=== PATIENT | female | born 1970 | race Caucasian/White ===

== ENCOUNTER 2016-12-28 11:47 | Emergency (ER) | payer SELFPAY ==
[2016-12-28 12:15] LABS: #Basophils 0.2 thou/uL (0.0-0.2); #Eosinphils 0.2 thou/uL (0.0-0.7); #Monocytes 0.9 thou/uL (0.11-0.59); #Neutrophils 8.1 thou/uL (1.40-6.50); %Basophils 1.6 % (0.0-1.0); %Eosinophils 1.6 % (0.0-10.0); %Monocytes 7.5 % (0.0-10.0); Hematocrit 47.3 % (36.0-47.0); Mean Platelet Volume 6.9 fL (7.4-10.4); Red Blood Cell (RBC) Count 5.11 mill/uL (4.20-5.40); White Blood Cell (WBC) Count 12.3 thou/uL (4.8-10.8)
[2016-12-28 12:32] LABS: ALT (SGPT) 24 U/L (0-55); AST (SGOT) 28 U/L (5-34); Alkaline Phosphatase 95 U/L (40-150); Anion Gap 16 mmol/L (10-20); BUN (Urea Nitrogen) 15 mg/dL (7.0-18.7); Bilirubin, Total 0.3 mg/dL (0.2-1.2); Calc. Creatinine Clearance 0 mL/min (70-130); Calcium 9.7 mg/dL (7.8-10.44); Carbon Dioxide 23 mmol/L (22-29); Chloride 106 mmol/L (98-107); Estimated GFR-MDRD 73; Globulin 3.2 g/dL (2.4-3.5); Lipase 25 U/L (8-78); Protein, Total 7.5 g/dL (6.0-8.3)
--- NOTE | 2016-12-28 12:52 | ERRECORD ---
[facility] EMERGENCY RECORD HPI ABDOMINAL PAIN (12:21 [facility]) CHIEF COMPLAINTS: Patient presents for evaluation of abdominal pain. HISTORIAN: History provided by patient, 46F presents with sudden onset epigastric pain that she describes as sharp and stabbing. Denies eating anything this morning prior to onset. Had similar symptoms recently and was found to have gallstones but no inflammation. has had intermittent symptoms recently that resolve spontaneously. LOCATION FEMALE: Symptoms are localized, most severe in the epigastrium. QUALITY: Pain is sharp in nature, described as stabbing. TIME COURSE: Sudden onset of symptoms, Symptoms have resolved. ASSOCIATED WITH FEMALE: No associated symptoms. RELIEVED BY: Patient's condition relieved by time. ROS (12:23 [facility]) CONSTITUTIONAL: Negative constitutional review of systems, Historian denies chills, denies fever. EYES: Negative eye review of systems, Historian denies eye pain, denies vision changes. ENT: Negative ears, nose, throat review of systems, Historian denies rhinorrhea, denies sore throat, denies voice changes. CARDIOVASCULAR: Negative cardiovascular review of systems, Historian denies chest pain, denies palpitations. RESPIRATORY: Negative respiratory review of systems, Historian denies cough, denies shortness of breath. GI: Historian reports abdominal pain. GENITOURINARY FEMALE: Negative genitourinary review of systems, Historian denies dysuria, denies frequency. MUSCULOSKELETAL: Negative musculoskeletal review of systems, Historian denies back pain, denies fall, denies injury. SKIN: Negative skin review of systems, Historian denies rash, denies skin changes. NEUROLOGIC: Negative neurologic review of systems, Historian denies headache, denies mental status changes, denies paralysis, denies paresthesias, denies sensory changes. HEMO/LYMPHATIC: Normal hematologic/lymphatic system review, Historian denies abnormal blood clotting. ALLERGIC/IMMUNOLOGIC: Normal allergy/immunologic system review, Historian denies frequent infections. PAST MEDICAL HISTORY (11:53 [facility]) MEDICAL HISTORY: No past medical history, Flu vaccine not up to date, Tetanus immunization up to date, Pneumococcal vaccine not up to date. FEMALE SURGICAL HISTORY: tubal,. PSYCHIATRIC HISTORY: No previous psychiatric history. SOCIAL HISTORY: Patient drinks socially, every week, Patient denies drug use, Patient currently uses tobacco, smokes cigarettes, daily, Patient smokes 1 pack per day. &a-1R&a+25V*p+0X*z2035T*c202B*c15G*c2P*p-0X&a-25V&a+1R Name: Brisa Zhang : 1970 F46 MedRec: [id number] AcctNum: [id number] Prepared: Tory Dec 28, 2016 12:50 by Interface Page 1 of 4 pMD [facility] EMERGENCY RECORD KNOWN ALLERGIES No Known Drug Allergies CURRENT MEDICATIONS (11:52 [facility]) None VITAL SIGNS VITAL SIGNS: BP: 133/79, Pulse: 87, Resp: 22, Temp: 97.8 (Oral), Pain: 9, O2 sat: 99 on Room Air, Time: 12/28/2016 11:52. (11:52 [facility]) BP: 125/72, Pulse: 82, Resp: 18, Pain: 1, O2 sat: 95 on Room Air, Time: 12/28/2016 12:15. (12:15 [facility]) BP: 121/85, Pulse: 79, Resp: 18, Temp: 97.8 (Oral), Pain: 1, O2 sat: 97 on Room Air, Time: 12/28/2016 12:43. (12:43 [facility]) PHYSICAL EXAM (12:23 [facility]) CONSTITUTIONAL: Vital signs reviewed, Patient afebrile, Pulse normal, Blood pressure normal, Respiratory rate normal, Patient appears non toxic, Patient appears pain free, Patient alert and oriented to person, place and time. HEAD: Head exam normal, Head exam included findings of head atraumatic, normocephalic. EYES: Eye exam normal, Eye exam included findings of eyelids normal to inspection, Pupils equally round and reactive to light, Extraocular muscles intact, no nystagmus. ENT: ENT exam normal, Ear exam normal, external ear normal, tympanic membranes normal, no bleeding, Pharynx exam normal, Uvula exam normal, Tonsil exam normal, Mouth exam normal, mucous membranes moist, teeth normal. NECK: Neck exam normal, Neck exam included findings of normal range of motion, Trachea midline, no meningeal signs, no cervical adenopathy, no tenderness. RESPIRATORY CHEST: Respiratory and chest exam normal, Respiratory exam included findings of no respiratory distress, Breath sounds clear. CARDIOVASCULAR: Cardiovascular assessment normal, Cardiovascular exam included findings of heart rate regular rate and rhythm, Heart sounds normal. ABDOMEN FEMALE: Abdominal exam included findings of abdomen nontender, Abdominal exam included findings of abdomen nontender, Bowel sounds normal, no distension, no mass, no pulsatile masses, no peritoneal signs, no rigidity, no guarding, no rebound, Rovsing's sign absent. BACK: Back exam normal, Back exam included findings of normal inspection, range of motion normal, no tenderness. UPPER EXTREMITY: Upper extremity exam normal, Upper extremity exam included findings of inspection normal, Range of motion normal, Motor strength normal, Sensation intact, Radial pulse normal. LOWER EXTREMITY: Lower extremity exam normal, Lower extremity exam included findings of inspection normal, Range of motion normal, &a-1R&a+25V*p+0X*b7062Z*c202B*c15G*c2P*p-0X&a-25V&a+1R Name: Brisa Zhang : 1970 F46 MedRec: [id number] AcctNum: [id number] Prepared: Tory Dec 28, 2016 12:50 by Interface Page 2 of 4 pMD [facility] EMERGENCY RECORD Motor strength normal, Sensation intact, Posterior tibial pulse normal, Pedal pulse normal. NEURO: Neuro exam normal, Neuro exam findings include patient oriented to person, place and time, Speech normal, Gait normal, Cranial nerves intact, no focal motor deficits, no focal sensory deficits. SKIN: Skin exam normal, Skin exam included findings of skin warm, dry, and normal in color, no rash. PSYCHIATRIC: Psychiatric exam normal, Normal affect. MEDICATION ADMINISTRATION SUMMARY Drug Name: morphine injection, Dose Ordered: 4 mg, Route: IV Push, Status: Held, Time: 12:31 12/28/2016, Drug Name: *sodium chloride 0.9 % intravenous, Dose Ordered: 1 L, Route: IV Fluid Infusion, Status: Given, Time: 12:25 12/28/2016, *Additional information available in notes, Detailed record available in Medication Service section. DOCTOR NOTES (12:38 [facility]) RE-EVALUATION: Routine re-evaluation, after administration of IV fluids, The patient's condition has improved. TEXT: the patient presented with findings concerning for biliary colic. Considered other diagnoses such as pancreatitis, cholecystitis, choledocolithiasis, bowel obstruction, and appendicitis, but based on history of presenting illness, physical exam, bedside ultrasound results and laboratory studies, I believe biliary colic is the most likely etiology for the patient's symptoms. Pain is currently controlled and the patient is hemodynamically stable, and appropriate for outpatient follow up and management. If symptoms return or worsen, they should return to the ED for re-evaluation. PATIENT STATUS: Patient has improved since arrival to emergency department. PATIENT PLAN: The patient will be discharged. DATA REVIEWED: Lab data reviewed. PROBLEM LIST No recorded problems DIAGNOSIS (12:37 [facility]) FINAL: PRIMARY: biliary colic. PRESCRIPTION No recorded prescriptions DISPOSITION PATIENT: Disposition Type: Discharge, Disposition: *Discharge Home. (12:37 [facility]) Patient left the department. (12:47 [facility]) &a-1R&a+25V*p+0X*c6381S*c202B*c15G*c2P*p-0X&a-25V&a+1R Name: Brisa Zhang : 1970 F46 MedRec: [id number] AcctNum: [id number] Prepared: Tory Dec 28, 2016 12:50 by Interface Page 3 of 4 pMD [facility] EMERGENCY RECORD Cunningham: JOSE=MD Mariam, Robert KMOR=PATRICIO Otero, Vaishnavi &a-1R&a+25V*p+0X*t8747G*c202B*c15G*c2P*p-0X&a-25V&a+1R Name: Brisa Zhang : 1970 F46 MedRec: [id number] AcctNum: [id number] Prepared: Tory Dec 28, 2016 12:50 by Interface Page 4 of 4 pMD MTDD
--- NOTE | 2016-12-28 12:59 | PICIS ---
[facility] EMERGENCY RECORD TRIAGE ([place] Dec 28, 2016 11:50 [facility]) TRIAGE NOTES: Hx of gallbladder issues, needs to have it out, pain started today. ([place] Dec 28, 2016 11:50 [facility]) PATIENT: NAME: Brisa Zhang, AGE: 46, GENDER: female, : [place] 1970, TIME OF GREET: [place] Dec 28, 2016 11:48, PREFERRED LANGUAGE: Urdu, ETHNICITY: Not or , ECODE BILLING MAP: [facility], SSN: [id number], Zip Code: [address], KG WEIGHT: 95.25, PHONE: CELL, , , PERSON ID: [id number], PAYMENT: [employer] Self Pay, PCP: NONE. ([place] Dec 28, 2016 11:50 [facility]) COMPLAINT: Abdominal Pain. ([place] Dec 28, 2016 11:50 [facility]) ADMISSION: URGENCY: 3 Urgent, ADMISSION SOURCE: Home, TRANSPORT: CAR, BED: ER -02. ([place] Dec 28, 2016 11:50 [facility]) ASSESSMENT: Assessment: A&OX4. RR EVEN AND UNLBAORED. (11:53 [facility]) PAIN: Patient complains of pain described as, sharp, Location EPIGASTRIC. (11:53 [facility]) IMMUNIZATIONS: Flu vaccine not up to date, Tetanus not up to date, Pneumococcal vaccine not up to date. (11:53 [facility]) SIRS SCORING: Heart Rate 55-109 (0), Temp range 96.8-101.1 (0), respiratory rate 12-24 (0), Mental Status altered: no (0), Infection or Suspected Infection: No. (11:53 [facility]) TRIAGE SCREENING: Patient denies suicidal ideation, Patient denies presence of domestic violence. (11:53 [facility]) PROVIDERS: TRIAGE NURSE: Vaishnavi Otero RN. ([place] Dec 28, 2016 11:50 [facility]) VITAL SIGNS: BP 133/79, Pulse 87, Resp 22, Temp 97.8, (Oral), Pain 9, O2 Sat 99, on Room Air, Time 12/28/2016 11:52. (11:52 [facility]) KNOWN ALLERGIES No Known Drug Allergies CURRENT MEDICATIONS (11:52 [facility]) None VITAL SIGNS VITAL SIGNS: BP: 133/79, Pulse: 87, Resp: 22, Temp: 97.8 (Oral), Pain: 9, O2 sat: 99 on Room Air, Time: 12/28/2016 11:52. (11:52 [facility]) BP: 125/72, Pulse: 82, Resp: 18, Pain: 1, O2 sat: 95 on Room Air, Time: 12/28/2016 12:15. (12:15 [facility]) BP: 121/85, Pulse: 79, Resp: 18, Temp: 97.8 (Oral), Pain: 1, O2 sat: 97 on Room Air, Time: 12/28/2016 12:43. (12:43 [facility]) NURSING ASSESSMENT: ABDOMEN (11:55 [facility]) CONSTITUTIONAL: Patient arrives ambulatory, Gait steady, History obtained from patient, Patient appears, in distress due to pain, Patient cooperative, Patient alert, Oriented to person, place and time, Skin warm, Skin dry, Skin normal in color, Mucous membranes pink, Mucous membranes moist, Patient is well-groomed, &a-1R&a+25V*p+0X*h9898Q*c202B*c15G*c2P*p-0X&a-25V&a+1R Name: Brisa Zhang : 1970 F46 MedRec: [id number] AcctNum: [id number] Prepared: Tory Dec 28, 2016 12:57 by Interface Page 1 of 7 pMD [facility] EMERGENCY RECORD Patient complains of Epigastric pain, 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 Nausea, no vomiting. PAIN: sharp pain, shooting pain, to the epigastric region, on a scale 0-10 patient rates pain as 9. ABDOMEN: Abdomen assessment findings include abdomen symmetrical, Abdomen soft, tender, to the epigastric region, Bowel sound normal, Associated with nausea, no associated vomiting, Associated with appetite change, decrease. LMP: Last menstrual period not applicable due to menopause. GENITOURINARY FEMALE: no associated urinary complaints. NOTES: Patient tolerated procedure well. NURSING PROCEDURE: DISCHARGE NOTE (12:45 [facility]) DISCHARGE: Patient discharged to home, ambulating without assistance, driving self, unaccompanied, Summary of Care printed/ provided, Transition record given to patient, Discharge instructions given to patient, Simple or moderate discharge teaching performed, by PATRICIO Riggins, Discharge instructions and follow up reviewed with patient. Pt ambulatory to discharge desk., Above person(s) verbalized understanding of discharge instructions and follow-up care. BELONGINGS: Belongings remain with patient, Valuables remain with patient. NURSING PROCEDURE: IV PATIENT IDENITIFIER: Patient actively involved in identification process, Patient's identity verified by patient stating name, Patient's identity verified by patient stating date. (12:06 [facility]) IV SITE 1: IV therapy indicated for hydration, IV therapy indicated for medication administration, IV established, to the left antecubital, using a 20 gauge catheter, in one attempt, Saline lock established, Flushed with normal saline (mls): 10CC. (12:06 [facility]) FOLLOW-UP SITE 1: After procedure, 2x3 ensure dressing applied, After procedure, no drainage at IV site, After procedure, no swelling at IV site, After procedure, no redness at IV site. (12:06 [facility]) IV discontinued, due to patient being discharged, catheter intact. (12:43 [facility]) NOTES: Patient tolerated procedure well. (12:06 [facility]) Patient tolerated procedure well. (12:43 [facility]) NURSING PROCEDURE: NURSE NOTES (12:10 [facility]) NURSES NOTES: Notes: Dr. Becerra at bedside for ultrasound. ORDER DETAILS &a-1R&a+25V*p+0X*s6744N*c202B*c15G*c2P*p-0X&a-25V&a+1R Name: Brisa Zhang : 1970 F46 MedRec: [id number] AcctNum: [id number] Prepared: Tory Dec 28, 2016 12:57 by Interface Page 2 of 7 D [facility] EMERGENCY RECORD Order Name: CBC with Differential, Status: Active, Time: 11:58 12/28/2016, User: JOSE, - Ordered for: MD Becerra Jason, - Entered by: MD Becerra Jason - Tory Dec 28, 2016 11:58, - Quantity: 1, Order Name: Comprehensive Metabolic Panel, Status: Active, Time: 11:58 12/28/2016, User: JOSE, - Ordered for: MD Becerra Jason, - Entered by: MD Becerra Jason - Tory Dec 28, 2016 11:58, - Quantity: 1, Order Name: Lipase, Status: Active, Time: 11:58 12/28/2016, User: JOSE, - Ordered for: MD Becerra Jason, - Entered by: MD Becerra Jason - Tory Dec 28, 2016 11:58, - Quantity: 1, Order Name: SALINE LOCK, Status: Done, Time: 12:31 12/28/2016, User: DAREK, - Ordered for: MD Becerra Jason, - Entered by: MD Becerra Jason - Tory Dec 28, 2016 11:58, - Quantity: 1. MEDICATION ADMINISTRATION SUMMARY Drug Name: morphine injection, Dose Ordered: 4 mg, Route: IV Push, Status: Held, Time: 12:31 12/28/2016, Drug Name: *sodium chloride 0.9 % intravenous, Dose Ordered: 1 L, Route: IV Fluid Infusion, Status: Given, Time: 12:25 12/28/2016, *Additional information available in notes, Detailed record available in Medication Service section. MEDICATION SERVICE morphine injection: Order: morphine injection (morphine sulfate) - Dose: 4 mg : IV Push Ordered by: Robert Becerra MD Entered by: MD Tory Carr Dec 28, 2016 11:59 , Acknowledged by: PATRICIO Raymundo Dec 28, 2016 12:00, Held by: PATRICIO Raymundo Dec 28, 2016 12:31 Reason: Pain controlled at present. sodium chloride 0.9 % intravenous: Order: sodium chloride 0.9 % intravenous (0.9 % sodium chloride) - Dose: 1 L : IV Fluid Infusion Notes: (Bolus) Ordered by: Robert Becerra MD Entered by: MD Tory Carr Dec 28, 2016 11:59 , Acknowledged by: PATRICIO Raymundo Dec 28, 2016 12:00 Documented as given by: PATRICIO Raymundo Dec 28, 2016 12:25 Patient, Medication, Dose, Route and Time verified prior to administration. Amount given: 1000ml, IV SITE #1 IV fluids established for hydration, IV SITE #1 into left antecubital, IV SITE #1 1st bag hung, &a-1R&a+25V*p+0X*e4956G*c202B*c15G*c2P*p-0X&a-25V&a+1R Name: Brisa Zhang : 1970 F46 MedRec: [id number] AcctNum: [id number] Prepared: Tory Dec 28, 2016 12:57 by Interface Page 3 of 7 pMD [facility] EMERGENCY RECORD amount 1 Liter hung, via primary tubing, Connections checked prior to administration, Line traced prior to administration, Catheter placement confirmed via flush prior to administration, IV site without signs or symptoms of infiltration during medication administration, No swelling during administration, No drainage during administration, IV flushed after administration, Correct patient, time, route, dose and medication confirmed prior to administration, Patient advised of actions and side-effects prior to administration, Allergies confirmed and medications reviewed prior to administration, Patient in position of comfort, Side rails up, Cart in lowest position, Family at bedside. : Follow Up : Response assessment performed, No signs or symptoms of allergic reaction noted, _IV SITE #1:_, Total amount infused: 500ml, IV Discontinued with catheter intact. (12:43 [facility]) H[facility]12:[facility] CHIEF COMPLAINTS: Patient presents for evaluation of abdominal pain. HISTORIAN: History provided by patient, 46F presents with sudden onset epigastric pain that she describes as sharp and stabbing. Denies eating anything this morning prior to onset. Had similar symptoms recently and was found to have gallstones but no inflammation. has had intermittent symptoms recently that resolve spontaneously. LOCATION FEMALE: Symptoms are localized, most severe in the epigastrium. QUALITY: Pain is sharp in nature, described as stabbing. TIME COURSE: Sudden onset of symptoms, Symptoms have resolved. ASSOCIATED WITH FEMALE: No associated symptoms. RELIEVED BY: Patient's condition relieved by time. ROS (12:23 [facility] CONSTITUTIONAL: Negative constitutional review of systems, Historian denies chills, denies fever. EYES: Negative eye review of systems, Historian denies eye pain, denies vision changes. ENT: Negative ears, nose, throat review of systems, Historian denies rhinorrhea, denies sore throat, denies voice changes. CARDIOVASCULAR: Negative cardiovascular review of systems, Historian denies chest pain, denies palpitations. RESPIRATORY: Negative respiratory review of systems, Historian denies cough, denies shortness of breath. GI: Historian reports abdominal pain. GENITOURINARY FEMALE: Negative genitourinary review of systems, Historian denies dysuria, denies frequency. MUSCULOSKELETAL: Negative musculoskeletal review of systems, Historian denies back pain, denies fall, denies injury. SKIN: Negative skin review of systems, Historian denies rash, denies skin changes. NEUROLOGIC: Negative neurologic review of systems, Historian &a-1R&a+25V*p+0X*f1842V*c202B*c15G*c2P*p-0X&a-25V&a+1R Name: Brisa Zhang : 1970 F46 MedRec: [id number] AcctNum: [id number] Prepared: Toyr Dec 28, 2016 12:57 by Interface Page 4 of 7 pMD [facility] EMERGENCY RECORD denies headache, denies mental status changes, denies paralysis, denies paresthesias, denies sensory changes. HEMO/LYMPHATIC: Normal hematologic/lymphatic system review, Historian denies abnormal blood clotting. ALLERGIC/IMMUNOLOGIC: Normal allergy/immunologic system review, Historian denies frequent infections. PAST MEDICAL HISTORY (11:53 [facility]) MEDICAL HISTORY: No past medical history, Flu vaccine not up to date, Tetanus immunization up to date, Pneumococcal vaccine not up to date. FEMALE SURGICAL HISTORY: tubal,. PSYCHIATRIC HISTORY: No previous psychiatric history. SOCIAL HISTORY: Patient drinks socially, every week, Patient denies drug use, Patient currently uses tobacco, smokes cigarettes, daily, Patient smokes 1 pack per day. PHYSICAL EXAM (12:23 [facility]) CONSTITUTIONAL: Vital signs reviewed, Patient afebrile, Pulse normal, Blood pressure normal, Respiratory rate normal, Patient appears non toxic, Patient appears pain free, Patient alert and oriented to person, place and time. HEAD: Head exam normal, Head exam included findings of head atraumatic, normocephalic. EYES: Eye exam normal, Eye exam included findings of eyelids normal to inspection, Pupils equally round and reactive to light, Extraocular muscles intact, no nystagmus. ENT: ENT exam normal, Ear exam normal, external ear normal, tympanic membranes normal, no bleeding, Pharynx exam normal, Uvula exam normal, Tonsil exam normal, Mouth exam normal, mucous membranes moist, teeth normal. NECK: Neck exam normal, Neck exam included findings of normal range of motion, Trachea midline, no meningeal signs, no cervical adenopathy, no tenderness. RESPIRATORY CHEST: Respiratory and chest exam normal, Respiratory exam included findings of no respiratory distress, Breath sounds clear. CARDIOVASCULAR: Cardiovascular assessment normal, Cardiovascular exam included findings of heart rate regular rate and rhythm, Heart sounds normal. ABDOMEN FEMALE: Abdominal exam included findings of abdomen nontender, Abdominal exam included findings of abdomen nontender, Bowel sounds normal, no distension, no mass, no pulsatile masses, no peritoneal signs, no rigidity, no guarding, no rebound, Rovsing's sign absent. BACK: Back exam normal, Back exam included findings of normal inspection, range of motion normal, no tenderness. UPPER EXTREMITY: Upper extremity exam normal, Upper extremity exam included findings of inspection normal, Range of motion normal, Motor strength normal, Sensation intact, Radial pulse normal. &a-1R&a+25V*p+0X*c9297H*c202B*c15G*c2P*p-0X&a-25V&a+1R Name: Brisa Zhang : 1970 F46 MedRec: [id number] AcctNum: [id number] Prepared: Tory Dec 28, 2016 12:57 by Interface Page 5 of 7 pMD [facility] EMERGENCY RECORD LOWER EXTREMITY: Lower extremity exam normal, Lower extremity exam included findings of inspection normal, Range of motion normal, Motor strength normal, Sensation intact, Posterior tibial pulse normal, Pedal pulse normal. NEURO: Neuro exam normal, Neuro exam findings include patient oriented to person, place and time, Speech normal, Gait normal, Cranial nerves intact, no focal motor deficits, no focal sensory deficits. SKIN: Skin exam normal, Skin exam included findings of skin warm, dry, and normal in color, no rash. PSYCHIATRIC: Psychiatric exam normal, Normal affect. EVENTS TRANSFER: Triage to Emergency Emergency Room -02. (Tory Dec 28, 2016 11:50 K[facility]) Removed from Emergency Emergency Room -02. (12:47 [facility]) DOCTOR NOTES (12:38 [facility]) RE-EVALUATION: Routine re-evaluation, after administration of IV fluids, The patient's condition has improved. TEXT: the patient presented with findings concerning for biliary colic. Considered other diagnoses such as pancreatitis, cholecystitis, choledocolithiasis, bowel obstruction, and appendicitis, but based on history of presenting illness, physical exam, bedside ultrasound results and laboratory studies, I believe biliary colic is the most likely etiology for the patient's symptoms. Pain is currently controlled and the patient is hemodynamically stable, and appropriate for outpatient follow up and management. If symptoms return or worsen, they should return to the ED for re-evaluation. PATIENT STATUS: Patient has improved since arrival to emergency department. PATIENT PLAN: The patient will be discharged. DATA REVIEWED: Lab data reviewed. PROBLEM LIST No recorded problems DIAGNOSIS (12:37 [facility]) FINAL: PRIMARY: biliary colic. DISPOSITION PATIENT: Disposition Type: Discharge, Disposition: *Discharge Home. (12:37 [facility]) Patient left the department. (12:47 K[facility]) INSTRUCTION (12:38 [facility]) DISCHARGE: BILIARY COLIC WITH GALLSTONE (CONFIRMED). FOLLOWUP: Patel MONTOYA., LOUIS MANUEL, General Surgery, [address] [place] [address], [address], [facility] [address], [phone]. &a-1R&a+25V*p+0X*i9824R*c202B*c15G*c2P*p-0X&a-25V&a+1R Name: Brisa Zhang : 1970 F46 MedRec: [id number] AcctNum: [id number] Prepared: Tory Dec 28, 2016 12:57 by Interface Page 6 of 7 pMD [facility] EMERGENCY RECORD SPECIAL: Follow up with a general surgeon in clinic for possible elective cholecystectomy. Avoid large fatty meals. PRESCRIPTION No recorded prescriptions IMAGING (12:47 [facility]) *DISCHARGE INSTRUCTIONS RECEIPT: Image captured from scanner. *SUPPLY CHARGE SHEET: Image captured from scanner. ADMIN DIGITAL SIGNATURE: MD Becerra Jason. (12:43 JJA) PATRICIO Otero Krista. (12:48 KM[facility]) Cunningham: JOSE=MD Becerra Jason KMOR=PATRICIO Otero Krista &a-1R&a+25V*p+0X*m6911E*c202B*c15G*c2P*p-0X&a-25V&a+1R Name: Brisa Zhang : 1970 F46 MedRec: [id number] AcctNum: [id number] Prepared: Tory Dec 28, 2016 12:57 by Interface Page 7 of 7 pMD MTDD
--- NOTE | 2016-12-28 13:02 | PICIS ---
[facility] EMERGENCY RECORD TRIAGE ([place] Dec 28, 2016 11:50 KMOR) TRIAGE NOTES: Hx of gallbladder issues, needs to have it out, pain started today. ([place] Dec 28, 2016 11:50 KMOR) PATIENT: NAME: Brisa Zhang, AGE: 46, GENDER: female, : [place] 1970, TIME OF GREET: [place] Dec 28, 2016 11:48, PREFERRED LANGUAGE: Chinese, ETHNICITY: Not or , ECODE BILLING MAP: [facility], SSN: [id number], Zip Code: [address], KG WEIGHT: 95.25, PHONE: CELL, , , PERSON ID: [id number], PAYMENT: SJX Self Pay, PCP: NONE. ([place] Dec 28, 2016 11:50 KMOR) COMPLAINT: Abdominal Pain. ([place] Dec 28, 2016 11:50 KMOR) ADMISSION: URGENCY: 3 Urgent, ADMISSION SOURCE: Home, TRANSPORT: CAR, BED: ER -02. ([place] Dec 28, 2016 11:50 KMOR) ASSESSMENT: Assessment: A&OX4. RR EVEN AND UNLBAORED. (11:53 KMOR) PAIN: Patient complains of pain described as, sharp, Location EPIGASTRIC. (11:53 KMOR) IMMUNIZATIONS: Flu vaccine not up to date, Tetanus not up to date, Pneumococcal vaccine not up to date. (11:53 KMOR) SIRS SCORING: Heart Rate 55-109 (0), Temp range 96.8-101.1 (0), respiratory rate 12-24 (0), Mental Status altered: no (0), Infection or Suspected Infection: No. (11:53 KMOR) TRIAGE SCREENING: Patient denies suicidal ideation, Patient denies presence of domestic violence. (11:53 KMOR) PROVIDERS: TRIAGE NURSE: Vaishnavi Otero RN. ([place] Dec 28, 2016 11:50 KMOR) VITAL SIGNS: BP 133/79, Pulse 87, Resp 22, Temp 97.8, (Oral), Pain 9, O2 Sat 99, on Room Air, Time 12/28/2016 11:52. (11:52 KMOR) KNOWN ALLERGIES No Known Drug Allergies CURRENT MEDICATIONS (11:52 KMOR) None VITAL SIGNS VITAL SIGNS: BP: 133/79, Pulse: 87, Resp: 22, Temp: 97.8 (Oral), Pain: 9, O2 sat: 99 on Room Air, Time: 12/28/2016 11:52. (11:52 KMOR) BP: 125/72, Pulse: 82, Resp: 18, Pain: 1, O2 sat: 95 on Room Air, Time: 12/28/2016 12:15. (12:15 KMOR) BP: 121/85, Pulse: 79, Resp: 18, Temp: 97.8 (Oral), Pain: 1, O2 sat: 97 on Room Air, Time: 12/28/2016 12:43. (12:43 KMOR) NURSING ASSESSMENT: ABDOMEN (11:55 KMOR) CONSTITUTIONAL: Patient arrives ambulatory, Gait steady, History obtained from patient, Patient appears, in distress due to pain, Patient cooperative, Patient alert, Oriented to person, place and time, Skin warm, Skin dry, Skin normal in color, Mucous membranes pink, Mucous membranes moist, Patient is well-groomed, &a-1R&a+25V*p+0X*j4853D*c202B*c15G*c2P*p-0X&a-25V&a+1R Name: Brisa Zhang : 1970 F46 MedRec: [id number] AcctNum: [id number] Prepared: Tory Dec 28, 2016 12:57 by Interface Page [address] 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 Nausea, no vomiting. PAIN: sharp pain, shooting pain, to the epigastric region, on a scale 0-10 patient rates pain as 9. ABDOMEN: Abdomen assessment findings include abdomen symmetrical, Abdomen soft, tender, to the epigastric region, Bowel sound normal, Associated with nausea, no associated vomiting, Associated with appetite change, decrease. LMP: Last menstrual period not applicable due to menopause. GENITOURINARY FEMALE: no associated urinary complaints. NOTES: Patient tolerated procedure well. NURSING PROCEDURE: DISCHARGE NOTE (12:45 KMOR) DISCHARGE: Patient discharged to home, ambulating without assistance, driving self, unaccompanied, Summary of Care printed/ provided, Transition record given to patient, Discharge instructions given to patient, Simple or moderate discharge teaching performed, by PATRICIO Riggins, Discharge instructions and follow up reviewed with patient. Pt ambulatory to discharge desk., Above person(s) verbalized understanding of discharge instructions and follow-up care. BELONGINGS: Belongings remain with patient, Valuables remain with patient. NURSING PROCEDURE: IV PATIENT IDENITIFIER: Patient actively involved in identification process, Patient's identity verified by patient stating name, Patient's identity verified by patient stating date. (12:06 KMOR) IV SITE 1: IV therapy indicated for hydration, IV therapy indicated for medication administration, IV established, to the left antecubital, using a 20 gauge catheter, in one attempt, Saline lock established, Flushed with normal saline (mls): 10CC. (12:06 KMOR) FOLLOW-UP SITE 1: After procedure, 2x3 ensure dressing applied, After procedure, no drainage at IV site, After procedure, no swelling at IV site, After procedure, no redness at IV site. (12:06 KMOR) IV discontinued, due to patient being discharged, catheter intact. (12:43 KMOR) NOTES: Patient tolerated procedure well. (12:06 KMOR) Patient tolerated procedure well. (12:43 KMOR) NURSING PROCEDURE: NURSE NOTES (12:10 KMOR) NURSES NOTES: Notes: Dr. Becerra at bedside for ultrasound. ORDER DETAILS &a-1R&a+25V*p+0X*j6302S*c202B*c15G*c2P*p-0X&a-25V&a+1R Name: Brisa Zhang : 1970 F46 MedRec: [id number] AcctNum: [id number] Prepared: Tory Dec 28, 2016 12:57 by Interface Page [address] [facility] EMERGENCY RECORD Order Name: CBC with Differential, Status: Active, Time: 11:58 12/28/2016, User: OJSE, - Ordered for: MD Becerra Jason, - Entered by: MD Becerra Jason - Tory Dec 28, 2016 11:58, - Quantity: 1, Order Name: Comprehensive Metabolic Panel, Status: Active, Time: 11:58 12/28/2016, User: JOSE, - Ordered for: MD Becerra Jason, - Entered by: MD Becerra Jason - Tory Dec 28, 2016 11:58, - Quantity: 1, Order Name: Lipase, Status: Active, Time: 11:58 12/28/2016, User: JOSE, - Ordered for: MD Becerra Jason, - Entered by: MD Becerra Jason - Tory Dec 28, 2016 11:58, - Quantity: 1, Order Name: SALINE LOCK, Status: Done, Time: 12:31 12/28/2016, User: DAREK, - Ordered for: MD Becerra Jason, - Entered by: MD Becerra Jason - Tory Dec 28, 2016 11:58, - Quantity: 1. MEDICATION ADMINISTRATION SUMMARY Drug Name: morphine injection, Dose Ordered: 4 mg, Route: IV Push, Status: Held, Time: 12:31 12/28/2016, Drug Name: *sodium chloride 0.9 % intravenous, Dose Ordered: 1 L, Route: IV Fluid Infusion, Status: Given, Time: 12:25 12/28/2016, *Additional information available in notes, Detailed record available in Medication Service section. MEDICATION SERVICE morphine injection: Order: morphine injection (morphine sulfate) - Dose: 4 mg : IV Push Ordered by: Robert Becerra MD Entered by: MD Tory Carr Dec 28, 2016 11:59 , Acknowledged by: PATRICIO Raymundo Dec 28, 2016 12:00, Held by: PATRICIO Raymundo Dec 28, 2016 12:31 Reason: Pain controlled at present. sodium chloride 0.9 % intravenous: Order: sodium chloride 0.9 % intravenous (0.9 % sodium chloride) - Dose: 1 L : IV Fluid Infusion Notes: (Bolus) Ordered by: Robert Becerra MD Entered by: MD Tory Carr Dec 28, 2016 11:59 , Acknowledged by: PATRICIO Raymundo Dec 28, 2016 12:00 Documented as given by: PATRICIO Raymundo Dec 28, 2016 12:25 Patient, Medication, Dose, Route and Time verified prior to administration. Amount given: 1000ml, IV SITE #1 IV fluids established for hydration, IV SITE #1 into left antecubital, IV SITE #1 1st bag hung, &a-1R&a+25V*p+0X*l5360P*c202B*c15G*c2P*p-0X&a-25V&a+1R Name: Brisa Zhang : 1970 F46 MedRec: [id number] AcctNum: [id number] Prepared: Tory Dec 28, 2016 12:57 by Interface Page [address] [facility] EMERGENCY RECORD amount 1 Liter hung, via primary tubing, Connections checked prior to administration, Line traced prior to administration, Catheter placement confirmed via flush prior to administration, IV site without signs or symptoms of infiltration during medication administration, No swelling during administration, No drainage during administration, IV flushed after administration, Correct patient, time, route, dose and medication confirmed prior to administration, Patient advised of actions and side-effects prior to administration, Allergies confirmed and medications reviewed prior to administration, Patient in position of comfort, Side rails up, Cart in lowest position, Family at bedside. : Follow Up : Response assessment performed, No signs or symptoms of allergic reaction noted, _IV SITE #1:_, Total amount infused: 500ml, IV Discontinued with catheter intact. (12:43 KMOR) HPI ABDOMINAL PAIN (12:21 [facility]) CHIEF COMPLAINTS: Patient presents for evaluation of abdominal pain. HISTORIAN: History provided by patient, 46F presents with sudden onset epigastric pain that she describes as sharp and stabbing. Denies eating anything this morning prior to onset. Had similar symptoms recently and was found to have gallstones but no inflammation. has had intermittent symptoms recently that resolve spontaneously. LOCATION FEMALE: Symptoms are localized, most severe in the epigastrium. QUALITY: Pain is sharp in nature, described as stabbing. TIME COURSE: Sudden onset of symptoms, Symptoms have resolved. ASSOCIATED WITH FEMALE: No associated symptoms. RELIEVED BY: Patient's condition relieved by time. ROS (12:23 [facility]) CONSTITUTIONAL: Negative constitutional review of systems, Historian denies chills, denies fever. EYES: Negative eye review of systems, Historian denies eye pain, denies vision changes. ENT: Negative ears, nose, throat review of systems, Historian denies rhinorrhea, denies sore throat, denies voice changes. CARDIOVASCULAR: Negative cardiovascular review of systems, Historian denies chest pain, denies palpitations. RESPIRATORY: Negative respiratory review of systems, Historian denies cough, denies shortness of breath. GI: Historian reports abdominal pain. GENITOURINARY FEMALE: Negative genitourinary review of systems, Historian denies dysuria, denies frequency. MUSCULOSKELETAL: Negative musculoskeletal review of systems, Historian denies back pain, denies fall, denies injury. SKIN: Negative skin review of systems, Historian denies rash, denies skin changes. NEUROLOGIC: Negative neurologic review of systems, Historian &a-1R&a+25V*p+0X*g4335Z*c202B*c15G*c2P*p-0X&a-25V&a+1R Name: Brisa Zhang : 1970 F46 MedRec: [id number] AcctNum: [id number] Prepared: Tory Dec 28, 2016 12:57 by Interface Page [address] [facility] EMERGENCY RECORD denies headache, denies mental status changes, denies paralysis, denies paresthesias, denies sensory changes. HEMO/LYMPHATIC: Normal hematologic/lymphatic system review, Historian denies abnormal blood clotting. ALLERGIC/IMMUNOLOGIC: Normal allergy/immunologic system review, Historian denies frequent infections. PAST MEDICAL HISTORY (11:53 KMOR) MEDICAL HISTORY: No past medical history, Flu vaccine not up to date, Tetanus immunization up to date, Pneumococcal vaccine not up to date. FEMALE SURGICAL HISTORY: tubal,. PSYCHIATRIC HISTORY: No previous psychiatric history. SOCIAL HISTORY: Patient drinks socially, every week, Patient denies drug use, Patient currently uses tobacco, smokes cigarettes, daily, Patient smokes 1 pack per day. PHYSICAL EXAM (12:23 [facility]) CONSTITUTIONAL: Vital signs reviewed, Patient afebrile, Pulse normal, Blood pressure normal, Respiratory rate normal, Patient appears non toxic, Patient appears pain free, Patient alert and oriented to person, place and time. HEAD: Head exam normal, Head exam included findings of head atraumatic, normocephalic. EYES: Eye exam normal, Eye exam included findings of eyelids normal to inspection, Pupils equally round and reactive to light, Extraocular muscles intact, no nystagmus. ENT: ENT exam normal, Ear exam normal, external ear normal, tympanic membranes normal, no bleeding, Pharynx exam normal, Uvula exam normal, Tonsil exam normal, Mouth exam normal, mucous membranes moist, teeth normal. NECK: Neck exam normal, Neck exam included findings of normal range of motion, Trachea midline, no meningeal signs, no cervical adenopathy, no tenderness. RESPIRATORY CHEST: Respiratory and chest exam normal, Respiratory exam included findings of no respiratory distress, Breath sounds clear. CARDIOVASCULAR: Cardiovascular assessment normal, Cardiovascular exam included findings of heart rate regular rate and rhythm, Heart sounds normal. ABDOMEN FEMALE: Abdominal exam included findings of abdomen nontender, Abdominal exam included findings of abdomen nontender, Bowel sounds normal, no distension, no mass, no pulsatile masses, no peritoneal signs, no rigidity, no guarding, no rebound, Rovsing's sign absent. BACK: Back exam normal, Back exam included findings of normal inspection, range of motion normal, no tenderness. UPPER EXTREMITY: Upper extremity exam normal, Upper extremity exam included findings of inspection normal, Range of motion normal, Motor strength normal, Sensation intact, Radial pulse normal. &a-1R&a+25V*p+0X*c2906A*c202B*c15G*c2P*p-0X&a-25V&a+1R Name: Brisa Zhang : 1970 F46 MedRec: [id number] AcctNum: [id number] Prepared: Tory Dec 28, 2016 12:57 by Interface Page [address] [facility] EMERGENCY RECORD LOWER EXTREMITY: Lower extremity exam normal, Lower extremity exam included findings of inspection normal, Range of motion normal, Motor strength normal, Sensation intact, Posterior tibial pulse normal, Pedal pulse normal. NEURO: Neuro exam normal, Neuro exam findings include patient oriented to person, place and time, Speech normal, Gait normal, Cranial nerves intact, no focal motor deficits, no focal sensory deficits. SKIN: Skin exam normal, Skin exam included findings of skin warm, dry, and normal in color, no rash. PSYCHIATRIC: Psychiatric exam normal, Normal affect. EVENTS TRANSFER: Triage to Emergency Emergency Room -02. ([place] Dec 28, 2016 11:50 KMOR) Removed from Emergency Emergency Room -02. (12:47 KMOR) DOCTOR NOTES (12:38 JJA) RE-EVALUATION: Routine re-evaluation, after administration of IV fluids, The patient's condition has improved. TEXT: the patient presented with findings concerning for biliary colic. Considered other diagnoses such as pancreatitis, cholecystitis, choledocolithiasis, bowel obstruction, and appendicitis, but based on history of presenting illness, physical exam, bedside ultrasound results and laboratory studies, I believe biliary colic is the most likely etiology for the patient's symptoms. Pain is currently controlled and the patient is hemodynamically stable, and appropriate for outpatient follow up and management. If symptoms return or worsen, they should return to the ED for re-evaluation. PATIENT STATUS: Patient has improved since arrival to emergency department. PATIENT PLAN: The patient will be discharged. DATA REVIEWED: Lab data reviewed. PROBLEM LIST No recorded problems DIAGNOSIS (12:37 JJA) FINAL: PRIMARY: biliary colic. DISPOSITION PATIENT: Disposition Type: Discharge, Disposition: *Discharge Home. (12:37 JJA) Patient left the department. (12:47 KMOR) INSTRUCTION (12:38 JJA) DISCHARGE: BILIARY COLIC WITH GALLSTONE (CONFIRMED). FOLLOWUP: Patel MONTOYA., LOUIS MANUEL, General Surgery, [address] [place] [address], [address], [facility] [id number], [id number]. &a-1R&a+25V*p+0X*o4414S*c202B*c15G*c2P*p-0X&a-25V&a+1R Name: Brisa Zhang : 1970 F46 MedRec: [id number] AcctNum: [id number] Prepared: Tory Dec 28, 2016 12:57 by Interface Page [address] [facility] EMERGENCY RECORD SPECIAL: Follow up with a general surgeon in clinic for possible elective cholecystectomy. Avoid large fatty meals. PRESCRIPTION No recorded prescriptions IMAGING (12:47 KMOR) *DISCHARGE INSTRUCTIONS RECEIPT: Image captured from scanner. *SUPPLY CHARGE SHEET: Image captured from scanner. ADMIN DIGITAL SIGNATURE: MD Becerra Jason. (12:43 JJA) PATRICIO Otero Krista. (12:48 KMOR) Cunningham: JOSE=MD Becerra Jason KMOR=PATRICIO Otero Krista &a-1R&a+25V*p+0X*p5744I*c202B*c15G*c2P*p-0X&a-25V&a+1R Name: Brisa Zhang : 1970 F46 MedRec: [id number] AcctNum: [id number] Prepared: Tory Dec 28, 2016 12:57 by Interface Page 7 of 7 pMD MTDD
== END 2016-12-28 12:45 | disposition home or self-care (01) ==
LOC: BURERS 11:47
DX: K80.50 Calculus of bile duct without cholangitis or cholecystitis without obstruction (principal); F17.210 Nicotine dependence, cigarettes, uncomplicated
CPT/HCPCS: 80053; 83690; 85025; 99284